=== PATIENT | female | born 1980 | race Two or more races ===

== ENCOUNTER 2024-09-16 20:42 | Emergency (ER) | payer OTHER ==
[~2024-09-16] VITALS: Ht 170.2 cm; Wt 84.5 kg
--- NOTE | 2024-09-16 21:42 | ED.PDOC ---
Eye-HPI HPI Comments This is a 44-year-old female presents to the ED chief complaint lump in neck. Reports x2 days with fevers sore throat and large lump anterior neck with moderate tenderness. She denies nausea, vomiting, difficulty swallowing, chest pain, or shortness of breath. Chief Complaint: Neck Pain Time Seen by MD: 20:45 Reviewed Notes: Nurses Notes, Medications, Allergies Home Meds Active Scripts Amoxicillin & Pot Clavulanate (AUGMENTIN TABLET) 875 Mg Tb, 875 MG PO BID for 7 Days, #14 TAB Prov:AMAURY MANCIA URIEL 09/17/24 Information Source: Patient Mode of Arrival: Ambulatory Past Medical History PAST MEDICAL HISTORY: Denies Surgical History: Denies all surgeries MARKET RISK SPECIALIST History: No Pertinent MARKET RISK SPECIALIST History Family History Family History: Unknown Social History Smoker: Non-Smoker Alcohol: Denies ETOH Use Drugs: Denies Drug Use Constitutional: reports: chills, fatigue, fever; denies: diaphoresis, malaise, sweats, weakness, others EENTM: reports: throat pain, throat swelling; denies: blurred vision, double vision, ear bleeding, ear discharge, ear drainage, ear pain, ear ringing, eye pain, eye redness, hearing loss, mouth pain, mouth swelling, nasal discharge, nose bleeding, nose congestion, nose pain, photophobia, tearing, voice changes, others Respiratory: denies: cough, hemoptysis, orthopnea, SOB at rest, shortness of breath, SOB with excertion, stridor, wheezing, others Cardiovascular: denies: chest pain, dizzy spells, diaphoresis, Dyspnea on exertion, edema, irregular heart beat, left arm pain, lightheadedness, palpitations, PND, syncope, others Gastrointestinal: denies: abdomen distended, abdominal pain, blood streaked bowels, constipated, diarrhea, dysphagia, difficulty swallowing, hematemesis, melena, nausea, poor appetite, poor fluid intake, rectal bleeding, rectal pain, vomiting, others Genitourinary: denies: abnormal vagina bleeding, burning, dyspareunia, dysuria, flank pain, frequency, hematuria, incontinence, pain, , vagina discharge, urgency, others Neurological: denies: dizziness, fainting, headache, left sided numbness, left sided weakness, numbness, paresthesia, pre-existing deficit, right sided numbness, right sided weakness, seizure, speech problems, tingling, tremors, weakness, others Musculoskeletal: denies: back pain, gout, joint pain, joint swelling, muscle pain, muscle stiffness, neck pain, others Integumetry: reports: lumps (Neck); denies: bruises, change in color, change in hair/nails, dryness, laceration, lesions, rash, wounds, others Allergic/Immunocompromised: denies: Difficulty Healing, Frequent Infections, Hives, Itching, others Hematologic/Lymphatic: denies: anemia, blood clots, easy bleeding, easy bruising, swollen glands, others Endocrine: denies: excessive hunger, excessive sweating, excessive thirst, excessive urination, flushing, intolerance to cold, intolerance to heat, unexplained weight gain, unexplained weight loss, others Psychiatric: denies: anxiety, bipolar disorder, depression, hopeless, panic disorder, schizophrenia, sleepless, suicidal, others Physical Exam General Appearance: No Apparent Distress, Normal HEENT: Normal ENT Inspection, Pharynx Normal, TMs Normal Neck: Full Range of Motion, Non-Tender, Normal, Normal Inspection, Other (Golf ball size mass right anterior neck with moderate tenderness no noted redness or streaking.) Respiratory: Chest Non-Tender, Lungs Clear, No Accessory Muscle Use, No Respiratory Distress, Normal Breath Sounds Cardiovascular: No Edema, No JVD, No Murmur, No Gallop, Normal Peripheral Pulses, Regular Rate/Rhythm Breast Exam: Deferred Gastrointestinal: No Organomegaly, Non Tender, No Pulsatile Mass, Normal Bowel Sounds, Soft Genitalia: Deferred Pelvic: Deferred Rectal: Deferred Extremities: Normal capillary refill, Normal inspection, Normal range of motion, Non-tender, No pedal edema Musculoskeletal : Apperance: Normal Neurologic: Alert, emergency manager II-XII nml as Tested, No Motor Deficits, Normal Affect, Normal Mood, No Sensory Deficits Cerebellar Function: Normal Reflexes: Normal Skin: Dry, Normal Color, Warm Lymphatic: No Adenopathy Was a procedure done? Was a procedure done?: No EENT DIFF Eye: N/A Sore Throat: Sylvain's Angina, Peritonsillar Abscess, Peritonsillar Cellulitis, Pharyngitis, Streptococcal, URI X-Ray, Labs, Meds, VS Vital Signs Date Time Temp Pulse Resp B/P (MAP) Pulse Ox O2 Delivery O2 Flow Rate FiO2 09/16/24 21:50 86 18 98 Room Air 09/16/24 21:50 98.2 86 18 129/94 (106) 98 98.2 09/16/24 21:00 100.2 95 18 126/84 (98) 96 100.2 Lab Test 09/16/24 21:45 09/16/24 21:39 Range/Units SARS-CoV-2 Antigen (Rapid) Negative NEGATIVE Group A Streptococcus Rapid Negative White Blood Count 6.9 4.4-10.8 10^3/uL Red Blood Count 4.16 4.0-5.20 10^6/uL Hemoglobin 12.2 12.2-16.2 g/dL Hematocrit 36.6 36.0-46.0 % Mean Corpuscular Volume 88.0 80.0-100.0 fL Mean Corpuscular Hemoglobin 29.3 28.0-32.0 pg Mean Corpuscular Hemoglobin Concent 33.3 32.0-36.0 g/dL Red Cell Distribution Width 14.0 11.8-14.3 % Platelet Count 192 140-450 10^3/uL Mean Platelet Volume 10.2 6.9-10.8 fL Neutrophils (%) (Auto) 63.4 37.0-80.0 % Lymphocytes (%) (Auto) 25.7 10.0-50.0 % Monocytes (%) (Auto) 9.0 0.0-12.0 % Eosinophils (%) (Auto) 1.3 0.0-7.0 % Basophils (%) (Auto) 0.6 0.0-2.0 % Neutrophils # (Auto) 4.4 1.6-8.6 10 ^3/uL Lymphocytes # (Auto) 1.8 0.4-5.4 10 ^3/uL Monocytes # (Auto) 0.6 0-1.3 10 ^3/uL Eosinophils # (Auto) 0.1 0-0.8 10 ^3/uL Basophils # (Auto) 0 0-0.2 10 ^3/uL Nucleated Red Blood Cells 0.0 % Sodium Level 140 136-145 mmol/L Potassium Level 3.6 3.5-5.1 mmol/L Chloride Level 106 98-107 mmol/L Carbon Dioxide Level 27 20-31 mmol/L Anion Gap 7 5-15 Blood Urea Nitrogen 11 9-23 mg/dL Creatinine 1.00 0.550-1.02 mg/dL Glomerular Filtration Rate Calc 72 >90 mL/min BUN/Creatinine Ratio 11.0 10.0-20.0 Serum Glucose 102 74-106 mg/dL Calcium Level 9.7 8.7-10.4 mg/dL Total Bilirubin 0.6 0.2-1.0 mg/dL Aspartate Amino Transferase (AST) 95 H 13-40 U/L Alanine Aminotransferase (ALT) 113 H 7-40 U/L Alkaline Phosphatase 113 46-116 U/L Total Protein 7.1 5.7-8.2 g/dL Albumin 4.4 3.2-4.8 g/dL Thyroid Stimulating Hormone (TSH) 1.82 0.55-4.78 uIU/mL Free Thyroxine (T4) Calculated 0.94 0.89-1.76 ng/dL Free Triiodothyronine (T3) pg/mL 3.15 2.3-4.2 pg/mL X-Ray, Labs, Meds, VS Comment CT soft tissue neck shows thyroid mass recommendation is for ultrasound. Ultrasound thyroid shows multiple cystic lesions in the left in the right lobe largest measuring 2.8 cm. LABS: CBC within normal limits CMP within normal limits TSH WITHIN NORMAL LIMITS Free T4 WITHIN NORMAL LIMITS Free T3 WITHIN NORMAL LIMITS MEDICATIONS: CLINDAMYCIN 600 MG IV PIGGYBACK PATIENT REPORTS IMPROVEMENT FEVER AND SORE THROAT LICHEN SECONDARY TO PHARYNGITIS. WE WILL SCRIPT AUGMENTIN TWICE DAILY X7 DAYS. DISCUSSED WITH PATIENT TO FOLLOW UP WITH HER PCP FOR NEEDLE BIOPSY REGARDING THE CYST FOUND ON HER THYROID. ADVISED TO TAKE MEDICATION PRESCRIBED SIDE EFFECTS DISCUSSED. [id number] TYLENOL OR MOTRIN NEEDED FOR PAIN OR FEVER PER LABELED DOSING INSTRUCTIONS. ER RETURN PRECAUTIONS GIVEN PATIENT INDICATES UNDERSTANDING AGREES WITH DISCHARGE PLAN OF CARE Time of 1ST Reevaluation: 21:42 Reevaluation 1ST: Unchanged Time of 2ND Reevaluation: 01:19 Reevaluation 2ND: Improved Patient Education/Counseling: Diagnosis, Treatment, Prognosis, Need For Follow Up Family Education/Counseling: No Family Present Departure 1 Departure Time of Disposition: 01:08 Impression: Primary Impression: Cyst of thyroid determined by ultrasound Additional Impression: Pharyngitis Qualified Codes: J02.9 - Acute pharyngitis, unspecified Disposition: HOME / SELF CARE / HOMELESS Condition: Stable e-Prescriptions Amoxicillin & Pot Clavulanate (AUGMENTIN TABLET) 875 Mg Tb 875 MG PO BID for 7 Days, #14 TAB Prov: AMAURY MANCIA 09/17/24 Discharged With: Self Critical Care Note Critical Care Time?: No Stability Stability form required: AMAURY Ghotra Sep 16, 2024 21:42
[2024-09-16 21:50] VITALS: BP 129/94; PULSE 86; RESP 18; TEMP 98.2; O2SAT 98
[2024-09-16 21:51] LABS: Basophils # (auto) 0 10 ^3/uL (0-0.2); Basophils % (auto) 0.6 % (0.0-2.0); Eosinophils # (auto) 0.1 10 ^3/uL (0-0.8); Eosinophils % (auto) 1.3 % (0.0-7.0); Hematocrit 36.6 % (36.0-46.0); Hemoglobin 12.2 g/dL (12.2-16.2); Lymphocytes # (auto) 1.8 10 ^3/uL (0.4-5.4); Lymphocytes % (auto) 25.7 % (10.0-50.0); Mean Corpuscular Hemoglobin 29.3 pg (28.0-32.0); Mean Corpuscular Hgb Conc. 33.3 g/dL (32.0-36.0); Monocytes # (auto) 0.6 10 ^3/uL (0-1.3); Neutrophils # (auto) 4.4 10 ^3/uL (1.6-8.6); Neutrophils % (auto) 63.4 % (37.0-80.0); Platelet Count (auto) 192 10^3/uL (140-450); Red Blood Cells 4.16 10^6/uL (4.0-5.20); White Blood Cell 6.9 10^3/uL (4.4-10.8)
[2024-09-16 22:02] LABS: Albumin 4.4 g/dL (3.2-4.8); Alkaline Phosphatase 113 U/L (46-116); Anion Gap 7 (5-15); Blood Urea Nitrogen 11 mg/dL (9-23); Calcium 9.7 mg/dL (8.7-10.4); Carbon Dioxide 27 mmol/L (20-31); Chloride 106 mmol/L (98-107); Glucose 102 mg/dL (74-106); Potassium 3.6 mmol/L (3.5-5.1); Sodium 140 mmol/L (136-145); Total Protein 7.1 g/dL (5.7-8.2)
[2024-09-16 22:03] LABS: Alanine Aminotransferase 113 U/L (7-40); Aspartate Aminotransferase 95 U/L (13-40); Bilirubin, Total 0.6 mg/dL (0.2-1.0)
--- NOTE | 2024-09-16 22:26 | DVH ---
Accession Number: [id number] Clinical History: anterior neck mass/fever/throat pain Comparison: None Technique: After the intravenous administration of intravenous contrast, multi-slice CT scan of the n donell was performed without complication. Radiation Dose Information: CT Dose: CTDI volume is 23.59 mGy. Dose-length product is 595.7 mGy*cm Findings: The nasopharynx, oropharynx, hypopharynx, esophagus, and larynx demonstrate normal patency and contour without evidence of a soft tissue mass at this time. Bilaterally, the parotid, submandibular, and sublingual glands are normal in their size, shape, and a ttenuation without evidence of calcification. The visualized oral tongue, tongue base, and floor of mouth regions demonstrate no obvious mass or ab normal enhancement. Evaluation of the lateral spaces of the neck demonstrates no obvious masses at this time or significa nt lymphadenopathy. There is a 3.1 x 2.2 cm low-density mass in the right lobe of the thyroid with ti ssue density 28.55 Hounsfield units. This is too high for simple cyst. Recommend thyroid ultrasound for further evaluation. After the administration of contrast, no focal areas of abnormal enhancement are demonstrated. Impression: 1. 3.1 x 2.2 cm low-density mass right lobe of the thyroid. Tissue density is 20.55 which is too hig h to be a simple cyst. Consider thyroid ultrasound for further evaluation.
[2024-09-16 22:36] LABS: Rapid Strep A Screen-Throat Negative
[2024-09-16 22:58] LABS: COVID19 ANTIGEN SOFIA FIA NEGATIVE (NEGATIVE)
--- NOTE | 2024-09-17 00:23 | DVH ---
ULTRASOUND SOFT TISSUE HEAD AND NECK CLINICAL INDICATION: Mass seen on CT. TECHNIQUE: Multiple real time sonographic images of the thyroid were obtained. COMPARISON: Prior exam dated Findings/ IMPRESSION: The right thyroid lobe measures 4.6 x 2.7 x 2.3 cm with heterogeneous echogenicity. The left thyroid lobe measures 4.8 x 1.7 x 1.7 cm with heterogeneous echogenicity. The isthmus measured measures 0.5 cm with homogeneous echogenicity. Multiple cystic lesions seen in the bilateral thyroid lobes measuri ng up to 2.8 cm on the right side and 2.2 cm on the left side. Follow-up per TI-RADS criteria.
[2024-09-17] MEDS: CLINDAMYCIN 600MG IV 50 ML IV ONE (00:30)
[2024-09-17 00:42] LABS: Free T4 (Free Thyroxine) 0.94 ng/dL (0.89-1.76)
[2024-09-17 01:04] LABS: Free T3 3.15 pg/mL (2.3-4.2)
[2024-09-17] MEDS ORDERED: AUG875T PO (01:10)
== END 2024-09-17 01:19 | disposition home or self-care (01) ==
LOC: ER 20:42
DX: E04.1 Nontoxic single thyroid nodule (principal); J02.9 Acute pharyngitis, unspecified; Z20.822 Contact with and (suspected) exposure to COVID-19
CPT/HCPCS: 36415; 70490; 76536; 80053; 84439; 84443; 84481; 85025; 87070; 87426; 87880; 99284; J3490